=== PATIENT | male | born 1965 | race Caucasian/White ===

== ENCOUNTER 2016-10-29 20:09 | Emergency (ER) | payer MEDICARE, OTHER ==
[~2016-10-29 20:09] MED LIST: AMITIZA24 MCG PO; ATROVENT INH S2.5 ML NEB; DILANTIN100 MG PO; FORTEO 250250 MCG/ML SC; LYRICA100 MG PO; NORCO 10-325 T1 EACH PO; OSCAL 500 + D TA1 EA PO; PROVENTIL HFA6.7 GM INH; SYMBICORT 16010.2 GM INH; TYLENOL325 MG PO; VALIUM10 MG PO; VENTOLIN/PROVE0.5 ML NEB; ZANAFLEX4 MG PO; ZOCOR20 MG PO
[2016-10-29 22:09] LABS: HEMOGLOBIN 16.3 gm/dl (14.0-17.5); RED BLOOD COUNT 4.96 M/UL (4.20-5.50); WHITE BLOOD COUNT 10.6 K/UL (4.5-11.0)
[2016-10-29 22:28] LABS: BUN/CREATININE RATIO 28 (0-10)
== END 2016-10-30 06:20 | disposition home or self-care (01) ==
LOC: ER1 20:09
PROVIDERS: Student in an Organized Health Care Education/Training Program
DX: J44.1 Chronic obstructive pulmonary disease with (acute) exacerbation (principal); E11.9 Type 2 diabetes mellitus without complications; G40.909 Epilepsy, unspecified, not intractable, without status epilepticus; F17.210 Nicotine dependence, cigarettes, uncomplicated; Z88.2 Allergy status to sulfonamides; Z79.899 Other long term (current) drug therapy
CPT/HCPCS: 36415; 71020; 80053; 82550; 82553; 83874; 84484; 85025; 93005; 94640; 94664; 96361; 96374; 99285; J2930; J7030

== ENCOUNTER → 2017-02-05 | Outpatient (CLI) | payer MEDICARE, OTHER | LOC: OPSV 09:00 | DX: M81.0 Age-related osteoporosis without current pathological fracture (principal) | CPT/HCPCS: 96372 ==